=== PATIENT | female | born 1970 | race Caucasian/White ===

== ENCOUNTER → 2017-07-25 | Outpatient (REF) ==
--- NOTE | 2017-07-26 08:25 | RADIOLOGY IMAGING REPORT ---
FACILITY: [facility] PATIENT NAME: MAREK LOPEZ : [id number] MR: [id number] V: [id number] EXAM DATE: [id number] ORDERING PHYSICIAN: JONO FARRIS TECHNOLOGIST: Marilu Michael PROCEDURE:BILATERAL DIAGNOSTIC DIGITAL MAMMOGRAM WITH CAD AND 3D BREAST TOMOSYNTHESIS. COMPARISON:Prior mammograms dated 05/17/16. INDICATIONS:FAMILY HISTORY OF BREAST CANCER. FINDINGS: A small amount of fibroglandular tissue is seen throughout the breasts. Today's left breast ultrasound demonstrated no sonographic correlate, therefore, a six month followup left mammogram is recommended unless clinical findings warrant more immediate attention. DIAGNOSTIC CATEGORY 3--PROBABLY BENIGN FINDING. RECOMMENDATIONS: SIX MONTH FOLLOW-UP DIAGNOSTIC MAMMOGRAM: LEFT BREAST. IMPRESSION: Bi-RADS 3: A six month followup left mammogram is recommended as described above. Images were reviewed with R2CAD and 3D breast tomosynthesis. Dictated by: Candi Bartlett M.D. on 07/25/2017 at 16:01 Transcribed by: ALANIS on 07/25/2017 at 22:39 Approved by: Candi Bartlett M.D. on 07/26/2017 at 8:24 [facility]
--- NOTE | 2017-07-26 08:25 | RADIOLOGY IMAGING REPORT ---
[place] [facility] [place] NAME: MAREK LOPEZ : [id number] MR: [id number] V: [id number] EXAM DATE: [id number] ORDERING PHYSICIAN: JONO FARRIS TECHNOLOGIST: Eliot Hidalgo PROCEDURE: LEFT BREAST ULTRASOUND COMPARISON:None. INDICATIONS:TWO CONTIGUOUS ROUND MASSES UPPER OUTER QUADRANT OF THE LEFT BREAST. FINDINGS: The left breast was imaged in the 12 to 3 o'clock position revealing no sonographic abnormality cystic or solid, therefore, six month followup left mammogram is recommended for further evaluation unless clinical findings warrant more immediate attention. DIAGNOSTIC CATEGORY 3--PROBABLY BENIGN FINDING. RECOMMENDATIONS: SIX MONTH FOLLOW-UP DIAGNOSTIC MAMMOGRAM: LEFT BREAST. IMPRESSION: Bi-RADS 3: A six month followup left mammogram is recommended as described. Dictated by: Candi Bartlett M.D. on 07/25/2017 at 16:02 Transcribed by: ALANIS on 07/25/2017 at 22:43 Approved by: Candi Bartlett M.D. on 07/26/2017 at 8:24 [facility]
== END ==
LOC: MAMO 12:55
PROVIDERS: ATTEND Nurse Practitioner
DX: Z80.3 Family history of malignant neoplasm of breast (principal)
CPT/HCPCS: 77062; 77066

== ENCOUNTER → 2018-08-07 | Outpatient (REF) ==
--- NOTE | 2018-08-08 16:44 | RADIOLOGY IMAGING REPORT ---
FACILITY: [facility] [place] PATIENT NAME: MAREK LOPEZ : [id number] MR: [id number] V: [id number] EXAM DATE: ORDERING PHYSICIAN: JONO FARRIS TECHNOLOGIST: Radha Hernández RT(R)(CT) PROCEDURE:US LEFT BREAST COMPARISON:Prior mammograms 08/07/18 & 07/25/17. INDICATIONS: Further evaluation FINDINGS: In the 1 o'clock position of the Left breast 9cm from the nipple there is a well circumscribed ovoid hypoechoic nodule with a fatty central region likely representing an intramammary lymph node. This measures 1.3 x 1.3 x 0.35cm and likely accounts for the recent mammographic findings. Also incidentally noted in the 3 o'clock position of the Left breast 1cm from the nipple is a 5mm cyst. DIAGNOSTIC CATEGORY 2--BENIGN FINDING. RECOMMENDATIONS: ROUTINE MAMMOGRAM AND CLINICAL EVALUATION. IMPRESSION: BIRADS 2: Benign finding. There is an intramammary lymph node in the 1 o'clock position of the Left breast which would account for the mammographic findings. Dictated by: Candi Bartlett M.D. on 08/07/2018 at 16:42 Transcribed by: JURGEN on 08/08/2018 at 8:50 Approved by: Candi Bartlett M.D. on 08/08/2018 at 16:43 [facility]
--- NOTE | 2018-08-08 16:44 | RADIOLOGY IMAGING REPORT ---
FACILITY: [facility] PATIENT NAME: MAREK LOPEZ : [id number] MR: [id number] V: [id number] EXAM DATE: [id number] ORDERING PHYSICIAN: JONO FARRIS TECHNOLOGIST: Marilu Michael PROCEDURE:BILATERAL DIAGNOSTIC DIGITAL MAMMOGRAM WITH CAD ASSISTED INTERPRETATION & 3D TOMOSYNTHESIS COMPARISON:Prior mammograms 07/25/17, 07/17/15. INDICATIONS:ABN MAMMOGRAM 07/25/17 FINDINGS: Scattered fibroglandular densities are seen throughout the breasts. The ovoid nodular density in the upper outer quadrant of the Left breast is again seen and appears slightly increased in size. On the prior mammogram this appeared to represent 2 contiguous nodules although this likely represents a multi lobular lymph node as seen on Today's Left breast Ultrasound. The remainder of the parenchymal pattern has remained stable. DIAGNOSTIC CATEGORY 2--BENIGN FINDING. RECOMMENDATIONS: ROUTINE MAMMOGRAM AND CLINICAL EVALUATION. IMPRESSION: BIRADS 2: Benign finding. Ovoid lobular density upper outer quadrant of the Left breast was shown today to represent an intramammary lymph node by Today's Left breast Ultrasound. Dictated by: Candi Bartlett M.D. on 08/07/2018 at 16:44 Transcribed by: JURGEN on 08/08/2018 at 8:44 Approved by: Candi Bartlett M.D. on 08/08/2018 at 16:43 [facility]
== END ==
LOC: MAMO 00:37
PROVIDERS: ATTEND Nurse Practitioner
DX: Z12.31 Encounter for screening mammogram for malignant neoplasm of breast (principal); N63.21 Unspecified lump in the left breast, upper outer quadrant
CPT/HCPCS: 77062; 77066

== ENCOUNTER → 2018-10-24 | Outpatient (REF) ==
--- NOTE | 2018-10-24 18:12 | RADIOLOGY IMAGING REPORT ---
FACILITY: [facility] PATIENT NAME: Deisy Mart : 1970 MR: [id number] V: [id number] EXAM DATE: [id number] ORDERING PHYSICIAN: ADEOLA CARRIZALES TECHNOLOGIST: Location: [facility] Patient: Deisy Mart : 1970 Visit/Account:[id number] Date of Sevice: 10/24/2018 EXAMINATION: CT of the Paranasal Sinuses HISTORY: Chronic sinus symptoms TECHNIQUE: CT was performed through the paranasal sinuses without intravenous contrast administratio n. Coronal and sagittal reformatted images were generated. One of the following dose optimization techniques was utilized in the performance of this exam: autom ated exposure control; adjustment of the mA and/or kV according to patient size; or use of iterative reconstruction technique. Specific details can be referenced in the facility's radiology CT exam ope rational policy. COMPARISON: None. FINDINGS: Clear mastoid air cells and middle ear cavities. Clear sinuses. No nasal cavity polyp. Patent infu ndibula. Rightward nasal septum deviation measures 3 mm. Normal temporomandibular joints. The visible extracranial and intracranial structures are normal. IMPRESSION: 1. Clear sinuses. 2. 3 mm rightward nasal septum deviation. 3. Otherwise unremarkable sinus CT. Report Dictated By: Cr Gant MD at 10/24/2018 6:04 PM Report E-Signed By: Cr Gant MD at 10/24/2018 6:07 PM WSN:[id number]
== END ==
LOC: CT 01:26
PROVIDERS: ATTEND Family Medicine
DX: J32.9 Chronic sinusitis, unspecified (principal)
CPT/HCPCS: 70486

== ENCOUNTER 2019-01-20 18:32 | Emergency (ER) | payer SELFPAY ==
[2019-01-20 18:35] VITALS: BP 121/69
--- NOTE | 2019-01-20 18:43 | ER Report ---
History and Physical Time Seen By MD: 18:40 Hx. of Stated Complaint: PATIENT REPORTS THAT SHE STEPPED ON HER CAT LAST NIGHT. AFTER STEPPING ON HER CAT, HER CAT SCRATCHED HER. SHE REPORTS THAT HER OPEND THE WOUNDS AND TRIED TO SQUEEZE THE PUSS OUT. SHE REPORTS THAT SHE IS DIABETIC AND DOES NOT WANT TO HAVE ANY COMPLICATIONS HPI/ROS CHIEF COMPLAINT: cat scratches on foot infected HISTORY OF PRESENT ILLNESS: This is a 48 year old female. Stepped on her cat last night, scratched her right foot in two places that are now swelling, hot, red and painful. Tried cleaning at home, and squeezed with yellow pus. Cat up to date on shots. Allergies: Coded Allergies: No Known Drug Allergies (Unverified , 09/18/18) Home Meds Active Scripts Amoxicillin/Pot Clav 875-125 Mg Tab (AUGMENTIN 875-125 TABLET) 1 Each Tablet, 1 TAB PO Q12H for 10 Days, #20 TAB 0 Refills Prov:JELLY STEPHEN MD 01/20/19 Reported Medications Cholecalciferol (Vitamin D3) (VITAMIN D) 2,000 Unit Capsule, 2000 UNIT PO, CAP MARIE 01/20/19 Bupropion Hcl (WELLBUTRIN SR) 150 Mg Tablet.er, 150 MG PO BID, TAB 01/20/19 Simvastatin (SIMVASTATIN) 20 Mg Tablet, 20 MG PO HS, TAB 01/20/19 Montelukast Sodium (SINGULAIR) 10 Mg Tablet, 1 TAB PO QDAY, TAB 01/20/19 Fluoxetine Hcl (FLUOXETINE HCL) 20 Mg Capsule, 40 MG PO QDAY, CAPSULE 01/20/19 Amitriptyline Hcl (AMITRIPTYLINE HCL) 50 Mg Tablet, 40 MG PO QHS, #5 TAB 01/20/19 Metformin Hcl (METFORMIN HCL) 1,000 Mg Tablet, 1 TAB PO BID, TAB 01/20/19 Reviewed Nurses Notes: Yes Smoking Status: Current: Every Day Smoker Constitutional Vital Sign - Last 24 Hours 01/20/19 01/20/19 01/20/19 01/20/19 18:35 18:35 18:47 19:02 Temp 98.2 Pulse 92 89 Resp 20 B/P (MAP) 121/69 121/69 (86) Pulse Ox 91 93 94 O2 Delivery Room Air Physical Exam General: Alert, no distress. Skin: Two scratches on lateral right dorsal foot. Red, painful, warm and swollen. Neuro: Normal. Cardio: Normal peripheral perfusion. Musculoskeletal: Normal movement, but with pain. Medical Decision Making ED Course/Re-evaluation ED Course Numbing of the area with lidocaine with epinephrine and bupivacaine with epinephrine. Patient had some drainage of very small amount of purulent material from these wounds. Scrubbed and dressed. Started on Augmentin. Decision to Disposition Date: Jan 20, 2019 Decision to Disposition Time: 19:07 Depart Departure Latest Vital Signs Vital Signs Date Time Temp Pulse Resp B/P (MAP) Pulse Ox O2 Delivery O2 Flow Rate FiO2 01/20/19 19:02 94 01/20/19 18:47 89 01/20/19 18:35 121/69 (86) 01/20/19 18:35 98.2 20 Room Air Impression: Primary Impression: Cat scratch Additional Impression: Cellulitis Condition: Improved Disposition: HOME OR SELF-CARE Referrals: ADEOLA CARRIZALES MD (PCP) New Scripts Amoxicillin/Pot Clav 875-125 Mg Tab (AUGMENTIN 875-125 TABLET) 1 Each Tablet 1 TAB PO Q12H for 10 Days, #20 TAB 0 Refills Prov: JELLY STEPHEN MD 01/20/19 Patient Instructions: Animal Bite (ED), Cellulitis (ED) Additional Instructions: Take Augmentin 875/125 twice a day for 10 days. Wash with soap and water twice a day and bandage. Ibuprofen or Tylenol as needed for pain. Problem Qualifiers Additional Impression: Cellulitis Site of cellulitis: extremity Site of cellulitis of extremity: lower extremity Laterality: right Qualified Codes: L03.115 - Cellulitis of right lower limb JELLY STEPHEN MD Jan 20, 2019 18:43
[2019-01-20] MEDS ORDERED: METF-452 PO (18:45)
[2019-01-20] MEDS ORDERED: AMIT-108 PO (18:45)
[2019-01-20] MEDS ORDERED: MONT10TA PO (18:45)
[2019-01-20] MEDS ORDERED: BUPR-126 PO (18:45)
[2019-01-20] MEDS ORDERED: SIMV-49 PO (18:45)
[2019-01-20] MEDS ORDERED: FLUO-177 PO (18:45)
[2019-01-20] MEDS ORDERED: CHOL200021 PO (18:46)
[2019-01-20] MEDS ORDERED: AMOX-559 PO (19:12)
[2019-01-20] MEDS ORDERED: AMOX/CLAV 875 MG TAB PO ONE (19:15)
== END 2019-01-20 19:23 | disposition home or self-care (01) ==
LOC: ER 18:51
DX: S90.811A Abrasion, right foot, initial encounter (principal); L03.115 Cellulitis of right lower limb
CPT/HCPCS: 99283